=== PATIENT | male | born 1940 | race Caucasian/White ===

== ENCOUNTER 2016-10-31 09:32 | Emergency (ER) | payer MEDICARE, OTHER ==
--- NOTE | 2016-10-31 09:36 | EDM.PDOC ---
ED HPI Skin/Rash - General Chief Complaint: Skin Complaint Stated Complaint: TICK BITE Time Seen by Provider: 10/31/16 09:34 Source: Reports: Patient, Old records, RN, RN notes reviewed History Limitations: Reports: No limitations - History of Present Illness INITIAL COMMENTS - FREE TEXT/NARRATIVE: C/O tick bite to left upper anterior thigh. Pt noticed the tick 1 week ago, and states it wasn't very deep so he pulled it off. Now the area is red, round, and white in the middle like a bulls eye so he came to the ER to be checked. Denies fever, chills, CHRISTIANSEN, myalgia, or joint pains. Timing: Reports: still present Severity: mild Known Identified Source: yes Sick Contact: no Associated Symptoms: Reports: no other symptoms Similar Symptoms Previously: no Recent Medical Care: no - Related Data Allergies Allergy/AdvReac Type Severity Reaction Status Date / Time ragweed pollen Allergy Sneezing Verified 10/31/16 09:36 Home Meds: Ambulatory Orders Medication Instructions Recorded Confirmed Aspirin 81 mg PO BRK 10/31/16 10/31/16 Past Medical History HEENT History: Reports: None Cardiovascular History: Reports: High cholesterol, Other (see below) Other Cardiovascular History: PRE-HYPERTENSION Respiratory History: Reports: None Gastrointestinal History: Reports: Diverticulosis Other Gastrointestinal History: CECAL TUBULAR ADENOMA; DIVERTICULOSIS; SIGMOID TUBULAR ADENOMA Genitourinary History: Reports: BPH Musculoskeletal History: Reports: Fracture, Other (see below) Other Musculoskeletal History: HX OF ANKLE FRACTURE Neurological History: Reports: None Psychiatric History: Reports: None Endocrine/Metabolic History: Reports: Diabetes, type II Other Endocrine/Metabolic History: pre-diabetic. Diet only Hematologic History: Reports: Anemia Immunologic History: Reports: None Oncologic (Cancer) History: Reports: None Dermatologic History: Reports: None - Infectious Disease History Infectious Disease History: Reports: Chicken pox, Measles, Mumps Other Infectious Disease History: has had a schingles shot - Past Surgical History HEENT Surgical History: Reports: Adenoidectomy, Tonsillectomy GI Surgical History: Reports: Appendectomy, Colonoscopy, Other (see below) Other Female Surgeries/Procedures: PROSTRATE SURGERY Male Surgical History: Reports: Cystectomy, Vasectomy, Other (see below) Social & Family History - Family History Family Medical History: Noncontributory - Tobacco Use Smoking Status *Q: Former Smoker Years of Tobacco use: 15 Packs/Tins Daily: 2 Used Tobacco, but Quit: Yes Month Tobacco Last Used: 40 years ago Second Hand Smoke Exposure: No - Caffeine Use Caffeine Use: Reports: Coffee - Recreational Drug Use Recreational Drug Use: No - Living Situation & Occupation Living situation: Reports: Occupation: retired ED ROS GENERAL - Review of Systems Review Of Systems: ROS reveals no pertinent complaints other than HPI. ED EXAM, SKIN/RASH Exam: See Below Exam Limited By: No limitations General Appearance: alert, WD/WN, no apparent distress Head: atraumatic, normocephalic Respiratory/Chest: no respiratory distress Cardiovascular: regular rate, rhythm Extremities: normal range of motion, non-tender, no pedal edema, normal capillary refill Neurological: alert, oriented, CN II-XII intact, normal cognition, normal gait, no motor/sensory deficits Psychiatric: normal affect, normal mood Skin: Warm, Dry, Intact, Other (left proximal anterior thigh with 2.5cm round erythematous flat lesion with central "bulls eye" clearing) Course - Vital Signs Last Recorded V/S: Last Vital Signs Temp 36.3 C 10/31/16 09:37 Pulse 84 10/31/16 09:37 Resp 16 10/31/16 09:37 BP 170/94 H 10/31/16 09:37 Pulse Ox 98 10/31/16 09:37 Departure - Departure Time of Disposition: 09:55 Disposition: Home, Self-Care 01 Condition: good Clinical Impression: Tick bite of left thigh Qualifiers: Encounter type: initial encounter Qualified Code(s): S70.362A - Insect bite ( nonvenomous), left thigh, initial encounter Instructions: Lyme Disease Forms: ED Department Discharge Additional Instructions: Rx: Doxycycline 100mg Follow up in clinic next week for recheck if not improving.
[2016-10-31 09:40] VITALS: BP 170/94
== END 2016-10-31 10:06 | disposition home or self-care (01) ==
LOC: DL.ED 09:32
DX: S70.362A Insect bite (nonvenomous), left thigh, initial encounter (principal); E78.00 Pure hypercholesterolemia, unspecified; I10 Essential (primary) hypertension; E11.9 Type 2 diabetes mellitus without complications; Z86.2 Personal history of diseases of the blood and blood-forming organs and certain disorders involving the immune mechanism; Z98.890 Other specified postprocedural states; Z90.49 Acquired absence of other specified parts of digestive tract; Z91.09 Other allergy status, other than to drugs and biological substances; Z87.891 Personal history of nicotine dependence; W57.XXXA Bitten or stung by nonvenomous insect and other nonvenomous arthropods, initial encounter
CPT/HCPCS: 99282; 99283

== ENCOUNTER 2018-01-27 19:58 | Emergency (ER) | payer OTHER, MEDICARE ==
[2018-01-27] MEDS ORDERED: Acetaminophen/HYDROcodone 325-10 MG Tab PO ONE (19:59)
[2018-01-27] MEDS ORDERED: Cephalexin 500 MG Cap PO ONE (19:59)
[2018-01-27 20:43] VITALS: BP 179/85
[2018-01-27] MEDS ORDERED: Bacitracin Oint 1 GM U/D Packet TOP ONE (20:46)
[2018-01-27] MEDS ORDERED: Lidocaine 1% 30 ML SDV INJECT ONE (20:46)
[2018-01-27] MEDS ORDERED: Acetaminophen 325 MG Tab PO ONE (20:46)
[2018-01-28] MEDS ORDERED: Acetaminophen/HYDROcodone 325-10 MG Tab ONE (00:49)
[2018-01-28] MEDS ORDERED: Cephalexin 500 MG Cap ONE (00:49)
--- NOTE | 2018-01-28 00:54 | EDM.PDOC ---
ED HPI GENERAL MEDICAL PROBLEM - General Chief Complaint: Laceration Stated Complaint: FINGER LACERATION Time Seen by Provider: 01/27/18 20:50 Source of Information: Reports: Patient History Limitations: Reports: No Limitations - History of Present Illness INITIAL COMMENTS - FREE TEXT/NARRATIVE: States working on table saw, turned around to use router then walked by saw and blade still turning and accidently brushed hand by blade, lacerations to right hand thumb middle and ring fingers. Tetnus 2 years ago. Bleeding controlled with pressure. Right Hand Pain Score (Numeric/FACES): 1 - Related Data Allergies Allergy/AdvReac Type Severity Reaction Status Date / Time ragweed pollen Allergy Sneezing Verified 01/27/18 20:37 Home Meds: Home Meds Aspirin 81 mg PO BRK 10/31/16 [History] atorvaSTATin [Lipitor] 10 mg PO BEDTIME 01/27/18 [History] Past Medical History HEENT History: Reports: None Cardiovascular History: Reports: High Cholesterol Other Cardiovascular History: PRE-HYPERTENSION Respiratory History: Reports: None Gastrointestinal History: Reports: None Other Gastrointestinal History: CECAL TUBULAR ADENOMA; DIVERTICULOSIS; SIGMOID TUBULAR ADENOMA Genitourinary History: Reports: None Musculoskeletal History: Reports: Fracture, Other (See Below) Other Musculoskeletal History: HX OF ANKLE FRACTURE Neurological History: Reports: None Psychiatric History: Reports: None Endocrine/Metabolic History: Reports: Diabetes, Type II Other Endocrine/Metabolic History: pre-diabetic. Diet only Hematologic History: Reports: Anemia Immunologic History: Reports: None Oncologic (Cancer) History: Reports: None Dermatologic History: Reports: None - Infectious Disease History Infectious Disease History: Reports: Chicken Pox, Measles, Mumps Other Infectious Disease History: has had a schingles shot - Past Surgical History HEENT Surgical History: Reports: Adenoidectomy, Tonsillectomy GI Surgical History: Reports: Appendectomy, Colonoscopy, Other (See Below) Male Surgical History: Reports: Cystectomy, Vasectomy, Other (See Below) Social & Family History - Family History Family Medical History: Noncontributory - Tobacco Use Smoking Status *Q: Never Smoker - Caffeine Use Caffeine Use: Reports: Coffee - Recreational Drug Use Recreational Drug Use: No - Living Situation & Occupation Living situation: Reports: Occupation: Retired ED ROS GENERAL - Review of Systems Review Of Systems: ROS reveals no pertinent complaints other than HPI. ED EXAM, SKIN/RASH Exam: See Below Exam Limited By: No Limitations General Appearance: Alert, Mild Distress Eye Exam: Bilateral Eye: EOMI Ears: Normal External Exam Nose: Normal Inspection Throat/Mouth: Normal Inspection Head: Atraumatic, Normocephalic Neck: Normal Inspection Respiratory/Chest: No Respiratory Distress, Lungs Clear Cardiovascular: Normal Peripheral Pulses, Regular Rate, Rhythm Peripheral Pulses: 2+: Radial (L), Radial (R) Back Exam: Full Range of Motion Extremities: Normal Range of Motion, Other (Lacerations fingers right hand). No : Normal Inspection Neurological: Alert, Oriented, Normal Cognition Psychiatric: Normal Affect, Normal Mood Skin: Warm, Normal Color, Wound/Incision (Right Thumb 2x1 cm , index, 2-2mm superficial falp, 3rd finger stellate 3cm x.5cm, 4th finger stellate, with avulsed soft tissue 2.5x1.5cm) Location, Skin: Upper Extremity, Right Associated features: Tenderness ED SKIN PROCEDURES - Laceration/Wound Repair Right Digit - 1st (Thumb) Lac/Wound length In cm: 2 Appearance: Superficial, Linear Distal NVT: Neuro & Vascular Intact, No Tendon Injury Local Anesthesia - Lidocaine (Xylocaine): 1% Plain Local Anesthetic Volume: 1cc Skin Prep: Chlorhexidine (Hibiciens), Saline Exploration/Debridement/Repair: Wound Explored Closed with: Sutures Suture Size: 4-0 # of Sutures: 3 Sterile Dressing Applied: Nurse Tetanus Status Addressed: Yes Complications: No Right Digit - 3rd (Middle) Appearance: Superficial, Stellate Distal NVT: Neuro & Vascular Intact, No Tendon Injury Anesthetic Type: Local Local Anesthesia - Lidocaine (Xylocaine): 1% Plain Local Anesthetic Volume: 3cc Skin Prep: Chlorhexidine (Hibiciens), Saline Saline Irrigation (cc's): 50 Exploration/Debridement/Repair: Wound Explored Closed with: Sutures Suture Size: 4-0 # of Sutures: 6 Suture Type: Nylon, Interrupted Right Digit - 4th (Ring) Lac/Wound length In cm: 2.5 Appearance: Subcutaneous Distal NVT: Neuro & Vascular Intact, No Tendon Injury Anesthetic Type: Local Local Anesthesia - Lidocaine (Xylocaine): 1% Plain Local Anesthetic Volume: 2cc Skin Prep: Chlorhexidine (Hibiciens), Saline Saline Irrigation (cc's): 100 Exploration/Debridement/Repair: Wound Explored, Explored to Base, Minimal Debridement, Multiple Flaps Aligned Closed with: Sutures Suture Size: 4-0 # of Sutures: 8 Suture Type: Nylon, Interrupted Suture Size: 4-0 # of Sutures: 4 Repaired with: Vicryl Sterile Dressing Applied: Nurse Tetanus Status Addressed: Yes Complications: No Course - Vital Signs Last Recorded V/S: Last Vital Signs Temp 97.9 F 01/27/18 20:42 Pulse 74 01/27/18 20:42 Resp 18 01/27/18 20:42 BP 179/85 H 01/27/18 20:42 Pulse Ox 97 01/27/18 20:42 - Orders/Labs/Meds Meds: Medications Discontinued Medications Generic Name Dose Route Start Last Admin Trade Name Freq PRN Reason Stop Dose Admin Acetaminophen 650 mg 01/27/18 20:46 01/27/18 21:03 Tylenol PO 01/27/18 20:47 650 mg NOW ONE Administration Hydrocodone Bitart/Acetaminophen Confirm 01/28/18 00:49 01/28/18 01:06 [place] 325-10 Mg Administered 01/28/18 00:50 Not Given Dose 2 tab .ROUTE .STK-MED ONE Hydrocodone Bitart/Acetaminophen 2 tab 01/27/18 19:59 [place] 325-10 Mg PO 01/27/18 20:00 .STK-MED ONE Bacitracin 2 dose 01/27/18 20:46 01/27/18 22:56 Bacitracin Oint 1 Gm TOP 01/27/18 20:47 2 dose ONETIME ONE Administration Cephalexin Confirm 01/28/18 00:49 01/28/18 01:06 Keflex Administered 01/28/18 00:50 Not Given Dose 1,000 mg .ROUTE .STK-MED ONE Cephalexin 1,000 mg 01/27/18 19:59 Keflex PO 01/27/18 20:00 .STK-MED ONE Lidocaine HCl 30 ml 01/27/18 20:46 01/27/18 22:56 Xylocaine-Mpf 1% INJECT 01/27/18 20:47 30 ml ONETIME ONE Administration - Radiology Interpretation Free Text/Narrative:: xray right hand, fingers, no fracture, punctate foreign bodies along the distal margin of the fourth finger Departure - Departure Time of Disposition: 00:49 Disposition: Home, Self-Care 01 Condition: Good Clinical Impression: Laceration of right thumb, Laceration of fingers without complication - Discharge Information *PRESCRIPTION DRUG MONITORING PROGRAM REVIEWED*: Not Applicable Instructions: Laceration Care, Adult, Stitches, [place], or Adhesive Wound Closure, [id number] Referrals: PCP,Unobtain [Primary Care Provider] - Forms: ED Department Discharge Additional Instructions: keep dressing clean and dry change dressing after 24 hours tylenol or ibuprofen for discomfort, may alternate every 4 hours elevate after 24 hours dressing change twice daily, antibiotic ointment non adherent dressing and wrap, , wash or soak soapy water if increased pain, drainage or redness follow up for evaluation keflex 500mg one three times daily for one week Hydrocodone/APA 10/325 1/2-1 every 6 hours as needed x2 Clinic recheck on Wednesday
== END 2018-01-28 01:02 | disposition home or self-care (01) ==
LOC: DL.ED 19:58
DX: S61.011A Laceration without foreign body of right thumb without damage to nail, initial encounter (principal); S61.210A Laceration without foreign body of right index finger without damage to nail, initial encounter; S61.212A Laceration without foreign body of right middle finger without damage to nail, initial encounter; E78.00 Pure hypercholesterolemia, unspecified; I10 Essential (primary) hypertension; E11.9 Type 2 diabetes mellitus without complications; Z91.048 Other nonmedicinal substance allergy status; Z79.82 Long term (current) use of aspirin; Z79.899 Other long term (current) drug therapy; W31.2XXA Contact with powered woodworking and forming machines, initial encounter
CPT/HCPCS: 12002; 73130; 99283; A9270

== ENCOUNTER 2020-10-02 19:14 | Emergency (ER) | payer MEDICARE, OTHER ==
[2020-10-02 19:45] VITALS: BP 169/102; PULSE 110
[2020-10-02] MEDS ORDERED: Bacitracin Oint 1 GM U/D Packet TOP ONE (21:04)
[2020-10-02] MEDS ORDERED: Lidocaine 1% 30 ML SDV INJECT ONE (21:04)
--- NOTE | 2020-10-02 21:09 | CR ---
PROCEDURE INFORMATION: Exam: XR Right Hand Exam date and time: 10/02/2020 8:33 PM Age: 80 years old Clinical indication: Pain; Hand; Bilateral; Additional info: Pain and swelling TECHNIQUE: Imaging protocol: XR Right hand. Views: 3 or more views. COMPARISON: No relevant prior studies available. FINDINGS: Bones/joints: [id number] degenerative changes in the right hand. No acute fracture. No dislocation. Normal bone mineralization. Soft tissues: No soft tissue swelling. No radiopaque foreign body. IMPRESSION: 1. No acute fracture. Followup imaging recommended in 7-14 days if clinical concern for fracture persists. 2. [id number]-[id number] degenerative changes in the right hand. PROCEDURE INFORMATION: Exam: XR Left Hand Exam date and time: 10/02/2020 8:33 PM Age: 80 years old Clinical indication: Pain; Hand; Bilateral; Additional info: Pain and swelling TECHNIQUE: Imaging protocol: XR Left hand. Views: 3 or more views. COMPARISON: No relevant prior studies available. FINDINGS: Bones/joints: The patient has a ring on his 4th finger. No acute fracture. No dislocation. Normal bone mineralization. Qrwf-kc-[id number] degenerative changes at the left hand. Soft tissues: No soft tissue swelling. No radiopaque foreign body. IMPRESSION: 1. No acute fracture. Followup imaging recommended in 7-14 days if clinical concern for fracture persists. 2. Zksb-lh-vribyzjs degenerative changes at the left hand. 3. Incidental/nonacute findings are listed in the report.
--- NOTE | 2020-10-02 21:14 | EDM.PDOC ---
ED HPI GENERAL MEDICAL PROBLEM - General Chief Complaint: Laceration Stated Complaint: AMBULANCE Time Seen by Provider: 10/02/20 22:06 Source of Information: Reports: Patient History Limitations: Reports: No Limitations - History of Present Illness INITIAL COMMENTS - FREE TEXT/NARRATIVE: Pato is a 80-year-old male presenting to the emergency department today for a laceration on his left fifth digit following a fall from standing. While was walking down a hill lost his balance and fell forward which caused the laceration. Prior to the fall he denies any dizziness, vertigo, headaches, chest pain, palpitations or shortness of breath. Lately he has felt a little more unsteady on his feet, he did start oxybutynin not too long ago. He denies any loss of consciousness following the fall and he does not believe that he hit his head. He has no other concerns today. Onset: Today Onset Date: 10/02/20 Duration: Constant Location: Reports: Upper Extremity, Left Quality: Reports: Dull Severity: Mild Associated Symptoms: Reports: No Other Symptoms Right Finger-Thumb Pain Score (Numeric/FACES): 2 Left Upper Finger-Little Pain Score (Numeric/FACES): 2 - Related Data Allergies Allergy/AdvReac Type Severity Reaction Status Date / Time ragweed pollen Allergy Sneezing Verified 10/02/20 19:45 Home Meds: Home Meds Aspirin 81 mg PO BRK 10/31/16 [History] atorvaSTATin [Lipitor] 10 mg PO BEDTIME 01/27/18 [History] Oxybutynin Chloride [Ditropan Xl] 10 mg PO DAILY 10/02/20 [History] metFORMIN [Glucophage XR] 500 mg PO BID 10/02/20 [History] Past Medical History HEENT History: Reports: None Cardiovascular History: Reports: High Cholesterol Other Cardiovascular History: PRE-HYPERTENSION Respiratory History: Reports: None Gastrointestinal History: Reports: None Other Gastrointestinal History: CECAL TUBULAR ADENOMA; DIVERTICULOSIS; SIGMOID TUBULAR ADENOMA Genitourinary History: Reports: None Musculoskeletal History: Reports: Fracture, Other (See Below) Other Musculoskeletal History: HX OF ANKLE FRACTURE Neurological History: Reports: None Psychiatric History: Reports: None Endocrine/Metabolic History: Reports: Diabetes, Type II Other Endocrine/Metabolic History: pre-diabetic. Diet only Hematologic History: Reports: Anemia Immunologic History: Reports: None Oncologic (Cancer) History: Reports: None Dermatologic History: Reports: None - Infectious Disease History Infectious Disease History: Reports: Chicken Pox, Measles, Mumps Other Infectious Disease History: has had a schingles shot - Past Surgical History HEENT Surgical History: Reports: Adenoidectomy, Tonsillectomy GI Surgical History: Reports: Appendectomy, Colonoscopy, Other (See Below) Male Surgical History: Reports: Cystectomy, Vasectomy, Other (See Below) Social & Family History - Family History Family Medical History: No Pertinent Family History - Tobacco Use Tobacco Use Status *Q: Former Tobacco User Used Tobacco, but Quit: No - Caffeine Use Caffeine Use: Reports: Coffee - Recreational Drug Use Recreational Drug Use: No - Living Situation & Occupation Living situation: Reports: Occupation: Retired ED ROS GENERAL - Review of Systems Review Of Systems: Comprehensive ROS is negative, except as noted in HPI. ED EXAM, SKIN/RASH Exam: See Below Exam Limited By: No Limitations General Appearance: Alert, WD/WN, No Apparent Distress Eye Exam: Bilateral Eye: EOMI, PERRL Ears: Normal External Exam, Hearing Grossly Normal Nose: Normal Inspection Throat/Mouth: Normal Inspection, Normal Voice, No Airway Compromise Head: Other (Minimal facial abrasions ) Neck: Non-Tender, Full Range of Motion Respiratory/Chest: No Respiratory Distress, Lungs Clear, Normal Breath Sounds Cardiovascular: Normal Peripheral Pulses, Regular Rate, Rhythm Back Exam: Normal Inspection (Thanks) Neurological: Alert, Oriented, CN II-XII Intact Skin: Wound/Incision Location, Skin: Lower Extremity, Left (3 cm laceration to 5th digit ) ED SKIN PROCEDURES - Laceration/Wound Repair Left Digit - 5th (Baby) Appearance: Superficial, Irregular Distal NVT: Neuro & Vascular Intact, No Tendon Injury Anesthetic Type: Local Local Anesthesia - Lidocaine (Xylocaine): 1% Plain Local Anesthetic Volume: 5cc Skin Prep: Isopropyl Alcohol (Alcohol) Saline Irrigation (cc's): 15 Exploration/Debridement/Repair: Minimal Debridement Closed with: Sutures Lac/Wound length In cm: 2 Suture Type: Other ([place]) Suture Size: 5-0 Course - Vital Signs Last Recorded V/S: Last Vital Signs Temp 97.8 F 10/02/20 19:22 Pulse 110 H 10/02/20 19:22 Resp 18 10/02/20 19:22 BP 169/102 H 10/02/20 19:22 Pulse Ox 95 04/07/21 19:22 - Orders/Labs/Meds Meds: Medications Discontinued Medications Generic Name Dose Route Start Last Admin Trade Name Chel PRN Reason Stop Dose Admin Bacitracin 1 dose 10/02/20 21:04 10/02/20 21:14 Bacitracin Oint 1 Gm U/D Packet TOP 10/02/20 21:05 1 dose ONETIME ONE Administration Lidocaine HCl 30 ml 10/02/20 21:04 10/02/20 21:14 Lidocaine 1% 30 Ml Sdv INJECT 10/02/20 21:05 30 ml ONETIME ONE Administration - Radiology Interpretation Free Text/Narrative:: Right hand xray: PROCEDURE INFORMATION: Exam: XR Right Hand Exam date and time: 10/02/2020 8:33 PM Age: 80 years old Clinical indication: Pain; Hand; Bilateral; Additional info: Pain and swelling TECHNIQUE: Imaging protocol: XR Right hand. Views: 3 or more views. COMPARISON: No relevant prior studies available. FINDINGS: Bones/joints: [id number] degenerative changes in the right hand. No acute fracture. No dislocation. Normal bone mineralization. Soft tissues: No soft tissue swelling. No radiopaque foreign body. IMPRESSION: 1. No acute fracture. Followup imaging recommended in 7-14 days if clinical concern for fracture persists. 2. Dqjf-li-[id number] degenerative changes in the right hand. See rad report - Re-Assessments/Exams Free Text/Narrative Re-Assessment/Exam: 10/03/20 02:06 I saw and evaluated the patient. Discussed with resident and agree with residents findings and plan as documented in the residents note. Departure - Departure Time of Disposition: 21:54 Disposition: Home, Self-Care 01 Condition: Good Clinical Impression: Laceration, Abrasion Fall Qualifiers: Encounter type: initial encounter Qualified Code(s): W19.XXXA - Unspecified fall, initial encounter - Discharge Information *PRESCRIPTION DRUG MONITORING PROGRAM REVIEWED*: No *COPY OF PRESCRIPTION DRUG MONITORING REPORT IN PATIENT ADÁN: No Instructions: Laceration Care, Adult, [id number], Sutures, [place], or Adhesive Wound Closure, [id number] Referrals: PCP,None [Primary Care Provider] - Forms: ED Department Discharge Additional Instructions: Follow up in 7-10 days to have sutures removed Monitor for signs of infection Return to the ER with any worsening of problems Keep area clean and dry Sepsis Event Note (ED) - Evaluation Sepsis Screening Result: No Definite Risk - Focused Exam Vital Signs: Vital Signs Temp Pulse Resp BP Pulse Ox 10/02/20 19:22 97.8 F 110 H 18 169/102 H 95
== END 2020-10-02 22:16 | disposition home or self-care (01) ==
LOC: DL.ED 19:14
DX: S61.217A Laceration without foreign body of left little finger without damage to nail, initial encounter (principal); S00.81XA Abrasion of other part of head, initial encounter; E78.00 Pure hypercholesterolemia, unspecified; E11.9 Type 2 diabetes mellitus without complications; Z79.82 Long term (current) use of aspirin; Z79.84 Long term (current) use of oral hypoglycemic drugs; Z79.899 Other long term (current) drug therapy; Z87.891 Personal history of nicotine dependence; Z91.048 Other nonmedicinal substance allergy status; W01.0XXA Fall on same level from slipping, tripping and stumbling without subsequent striking against object, initial encounter
CPT/HCPCS: 12001; 73130-50; 99282; 99284-25